=== PATIENT | male | born 1950 | race Caucasian/White ===

== ENCOUNTER → 2017-10-03 10:30 | Outpatient (CLI) | payer MEDICARE, SELFPAY | PROVIDERS: PCP Nurse Practitioner Family; Visit Provider Nurse Practitioner Family | DX: Z45.018 Encounter for adjustment and management of other part of cardiac pacemaker (principal); I48.0 Paroxysmal atrial fibrillation; I49.5 Sick sinus syndrome | CPT/HCPCS: 93280; 99213 ==

== ENCOUNTER → 2018-07-13 12:58 | Outpatient (BNVA) | payer MEDICARE, SELFPAY | PROVIDERS: PCP Nurse Practitioner Family; Visit Provider Internal Medicine Cardiovascular Disease | DX: I49.5 Sick sinus syndrome (principal); I10 Essential (primary) hypertension; I47.2 Ventricular tachycardia; R06.09 Other forms of dyspnea; Z45.010 Encounter for checking and testing of cardiac pacemaker pulse generator [battery] | CPT/HCPCS: 93280; 99205; 99215 ==

== ENCOUNTER 2018-07-23 00:15 | Outpatient (CLI) | payer MEDICARE, SELFPAY ==
--- NOTE | 2018-07-23 06:14 | MERGEMPI_ITS ---
*[facility]* *[facility]* [address] [place] [address] Myocardial Perfusion Imaging - SPECT Fran protocol Date of study: 07/23/2018 *PATIENT PRESENTATION* Height: 182.9cm (72in) Blood Pressure: Weight: 86.4kg (190lb) BSA: 2.1m^2 Referring physician: Smith Petit MD Ordering physician: Stone Renteria Impressions: - Normal perfusion by Tc99m Sestamibi Imaging. - Abnormal contraction consistent with cardiomyopathy. - Ventricular ectopy with exercise and in recovery. Summary: 1. Myocardial perfusion imaging: No myocardial perfusion defects noted. 2. The calculated left ventricular ejection fraction after stress: 43%. Diffuse left ventricular regional motion abnormalities. 3. Stress: The target heart rate was achieved. Indication: I47.2. History: REASON FOR VISIT: PT REPORTS HE IS HERE BECAUSE OF HIS PACEMAKER INTEROGATION RESULTS. HE HAS BORDERLINE HYPERTENSION, A HISTORY OF SINUS NODE DYSFUNCITON, S/P DUAL-CHAMBER PACEMAKER IMPLANT IN 2016. RECENTLY HE WAS FOUND TO HAVE TACHYARRYTHMIA ON A REMOTE DEVICE CHECK. PACEMAKER INTEROGATION ON 07/13/18 SHOWED NORMAL DEVICE FUNCTION WITH EPISODES OF NONSUSTAINED VENTRICULAR TACHYCARDIA. Risk factors: Family history of coronary artery disease. Hypertension. ALLERGIES: NO KNOWN ALLERGIES. MEDICATIONS: ASPIRIN 81 MG DAILY. Imaging Technique: Protocol: Fran protocol. Acquisition: Gated SPECT; 1 day - rest/stress. The patient was imaged in the supine position. Attenuation correction used. Isotope administration: - Rest. Tc[99m]-sestamibi. Dose: 10.3mCi. Injection time: 08:45 AM. Injection to stress time: 00:45. - Stress. Tc[99m]-sestamibi. Dose: 31.2mCi. Injection time: 11:15 AM. 1-2 min before end of exercise Baseline EC% ATRIAL PACED RHYTHM. RBBB. LPFB. HR 68 BPM. Stress protocol: + +---+ + !Stage !HR !BP (mmHg) ! + +---+ + !Baseline supine !68 !136/80 (99) ! + +---+ + !Baseline standing !64 !140/70 (93) ! + +---+ + !Stage I; 1.7mph, 10degrees; 3 min !84 !142/70 (94) ! + +---+ + !Stage II; 2.5mph, 12degrees; 3 min !97 !156/78 (104)! + +---+ + !Stage III; 3.4mph, 14degrees; 3 min!125!160/80 (107)! + +---+ + !Peak stress !152! ! + +---+ + !Recovery; 1 min !117!190/60 (103)! + +---+ + !Recovery; 3 min !96 !166/78 (107)! + +---+ + !Recovery; 6 min !79 !144/78 (100)! + +---+ + * Stress results: Maximal heart rate during stress was 152bpm (99% of maximal predicted heart rate). The maximal predicted heart rate was 153bpm. The target heart rate was achieved. The rate-pressure product for the peak heart rate and blood pressure was 02970bv Hg/min. Stress ECG: TREADMILL PORTION OF STRESS TEST ENDED IN 11 MINUTES DUE TO FATIGUE NORMAL HEART RATE AND BLOOD PRESSURE RESPONSE TO EXERCISE. MAX HR = 152 % OF TARGET = 99 OCCASIONAL PVCs DURING EXERCISE. FREQUENT PVCs MULTIFOCAL, PAIRS AND 3 BEAT RUNS DURING RECOVERY. NON SUSTAINED VENTRICULAR BIGEMINY DURING RECOVERY. NO ANGINA. UPWARD SLOPING ST SEGMENT DEPRESSIONS SEEN IN LEADS V3, V4 AND V5 AFTER [address] SEGMENTS RETURNED TO BASELINE IN BY 5 MINUTES RECOVERY PERIOD. ABOVE AVERAGE FUNCTIONAL CAPACITY FOR EXERCISE. Myocardial perfusion: Imaging information: gated. No myocardial perfusion defects noted. Ventricular Function (Wall Motion): The calculated left ventricular ejection fraction after stress: 43%. Diffuse left ventricular regional motion abnormalities. Study data: Smith Petit MD supervised and was readily available during the procedure. This study was interpreted by [facility]. Study status: Routine. Consent: The risks, benefits, and alternatives to the procedure were explained to the patient and informed consent was obtained. Procedure: Initial setup. A baseline ECG was recorded. Surface ECG leads and manual cuff blood pressure measurements were monitored. Heart sounds: Normal. Lung sounds: Normal. Treadmill exercise testing was performed using the Fran protocol. Study completion: All catheters inserted during the procedure were removed. The patient tolerated the procedure well and was discharged from the lab. Discharge: The patient left the laboratory in stable condition. Birthdate: Patient birthdate: 1950. Sex: Gender: male. Study date: Study date: 07/23/2018. Study time: 00:01 AM. Electronically signed by Smith Petit MD 07/23/2018 18:09
== END 2018-07-23 00:35 ==
PROVIDERS: PCP Nurse Practitioner Family; Visit Provider Internal Medicine Cardiovascular Disease
DX: I47.2 Ventricular tachycardia (principal); Z95.0 Presence of cardiac pacemaker; I10 Essential (primary) hypertension
CPT/HCPCS: 78452; 93016; 93018; 93017

== ENCOUNTER 2018-08-03 01:13 | Outpatient (CLI) | payer MEDICARE, SELFPAY ==
--- NOTE | 2018-08-03 14:01 | MERGE_ITS ---
*[facility]* *[facility]* [address] [place] [address] Date of study: 08/03/2018 Transthoracic Echocardiography M-mode, complete 2D, complete spectral Doppler, and color Doppler *STUDY CONCLUSIONS* Summary: 1. Left ventricle: The cavity size was normal. Systolic function was at the lower limits of normal. The estimated ejection fraction was 50-55%. 2. Mitral valve: Mild prolapse, involving the anterior leaflet and the posterior leaflet. There was moderate to severe regurgitation. 3. Left atrium: The atrium was moderately dilated. 4. Right ventricle: The cavity size was normal. Wall thickness was normal. Pacer wire or catheter noted in right ventricle. Systolic function was normal. 5. Atrial septum: No defect or patent foramen ovale was identified. 6. Pulmonic valve: Peak gradient (S): 2mm Hg. *PATIENT PRESENTATION* Height: 180.3cm ((71in) ) S/D Pressure: 137 / 83 Weight: 85.3kg ((187.6lb) ) BSA: 2.08m^2 Test start time: 02:00 PM. Test stop time: 03:00 PM. ORDERING Stone Renteria REFERRING Stone Renteria PERFORMING Unknown PERFORMING [facility] CONSULTING Inna Pittman PRODUCT SAFETY TEST ENGINEER Afia Antunez *PROCEDURE DATA* Procedure information: This study was interpreted by [facility]. Pertinent images and digital data are archived for permanent storage and are available for subsequent review. Comparison was made to the study of 03/19/2015. Study status: Routine. Transthoracic echocardiography. M-mode, complete 2D, complete spectral Doppler, and color Doppler. A Transthoracic Echocardiogram was performed. Scanning was performed from the parasternal, apical, subcostal, and suprasternal notch acoustic windows. Images were obtained using an [employer] sc [id number] cardiac ultrasound machine. Image quality was good. Study completion: The patient tolerated the procedure well. History: PMH: Non sustained [place]. *CARDIAC ANATOMY* Left ventricle: The cavity size was normal. Systolic function was at the lower limits of normal. The estimated ejection fraction was 50-55%. The tissue Doppler parameters were abnormal. Diastolic parameters were normal for age. There was no evidence of elevated ventricular filling pressure by Doppler parameters. Aortic valve: Trileaflet. Doppler: There was no stenosis. There was no regurgitation. VTI ratio of LVOT to aortic valve: 0.75. Peak velocity ratio of LVOT to aortic valve: 0.71. Mean velocity ratio of LVOT to aortic valve: 0.59. Mean gradient (S): 2.8mm Hg. Peak gradient (S): 4.9mm Hg. Aorta: Aortic root: The aortic root was normal in size. Ascending aorta: The ascending aorta was normal in size. Mitral valve: Mild prolapse, involving the anterior leaflet and the posterior leaflet. Mildly myxomatous leaflets. Doppler: There was no evidence for stenosis. There was moderate to severe regurgitation. Valve area by pressure half-time: 3.7cm^2. Indexed valve area by pressure half-time: 1.8cm^2/m^2. Left atrium: The atrium was moderately dilated. Atrial septum: No defect or patent foramen ovale was identified. Right ventricle: The cavity size was normal. Wall thickness was normal. Pacer wire or catheter noted in right ventricle. Systolic function was normal. Pulmonic valve: Doppler: There was no evidence for stenosis. There was mild regurgitation. Peak gradient (S): 2mm Hg. Tricuspid valve: Doppler: There was mild regurgitation. Pulmonary artery: Poorly visualized. Pulmonary systolic pressure was in the range of 20mm Hg to 30mm Hg. Right atrium: The atrium was normal in size. Pacer wire or catheter noted in right atrium. Pericardium: There was no pericardial effusion. Systemic veins: Inferior vena cava: The vessel was normal in size. The respirophasic diameter changes were in the normal range (greater than or equal to 50%), consistent with normal central venous pressure. Measurements Left ventricle Value Reference LV ID, ED, PLAX 5.1 cm 3.5 - 6.0 LV ID, ES, PLAX 3.8 cm 2.1 - 4.0 LV PW thickness, ED, PLAX 1.0 cm LV end-diastolic volume, 1-p A2C 107 ml LV ejection fraction, 1-p A2C 55 % LV end-diastolic volume, 1-p A4C 133 ml LV ejection fraction, 1-p A4C 52 % LV e', lateral 0.079 m/sec LV E/e', lateral 7 LV e', medial 0.055 m/sec LV E/e', medial 10 LV e', average 0.067 m/sec LV E/e', average 8 Ventricular septum Value Reference IVS thickness, ED, PLAX 0.9 cm LVOT Value Reference LVOT peak velocity, S 0.79 m/sec LVOT mean velocity, S 0.47 m/sec LVOT VTI, S 18.7 cm LVOT peak gradient, S 2.5 mm Hg LVOT mean gradient, S 1.1 mm Hg Aortic valve Value Reference Aortic valve peak velocity, S 1.1 m/sec Aortic valve mean velocity, S 0.78 m/sec Aortic valve VTI, S 25.0 cm Aortic mean gradient, S 2.8 mm Hg Aortic peak gradient, S 4.9 mm Hg VTI ratio, LVOT/AV 0.75 Velocity ratio, peak, LVOT/AV 0.71 Velocity ratio, mean, LVOT/AV 0.59 Aorta Value Reference Aortic root ID, ED 3.5 cm Ascending aorta ID, A-P, S 3.2 cm Left atrium Value Reference LA ID, A-P, ES 3.9 cm LA ID/bsa, A-P 1.9 cm/m^2 <=2.2 LA area, ES, A4C (H) 27.3 cm^2 8.8 - 23.4 LA area, ES, A2C 19 cm^2 LA volume/bsa, S 49 ml/m^2 LA volume, ES, 2-p 93 ml LA volume/bsa, ES, 2-p 45 ml/m^2 LA/aortic root ratio 1.14 Mitral valve Value Reference Mitral E-wave peak velocity 0.57 m/sec Mitral A-wave peak velocity 0.54 m/sec Mitral deceleration time 203 ms 150 - 230 Mitral pressure half-time 59 ms Mitral E/A ratio, peak 1.05 Mitral valve area, PHT, DP 3.7 cm^2 Tricuspid valve Value Reference Tricuspid regurg peak velocity 2.4 m/sec Tricuspid peak RV-RA gradient 22.4 mm Hg Right atrium Value Reference RA area, ES, A4C 18.6 cm^2 8.3 - 19.5 Pulmonic valve Value Reference Pulmonic peak gradient, S 2 mm Hg Legend: (L) and (H) william values outside specified reference range. I have personally reviewed the images and have reviewed and edited the reported findings. Electronically signed by Smith Petit MD 08/03/2018 19:18
== END 2018-08-03 01:33 ==
PROVIDERS: PCP Nurse Practitioner Family; Visit Provider Internal Medicine Cardiovascular Disease
DX: I47.2 Ventricular tachycardia (principal); I34.1 Nonrheumatic mitral (valve) prolapse; Z95.0 Presence of cardiac pacemaker; I48.91 Unspecified atrial fibrillation; I10 Essential (primary) hypertension
CPT/HCPCS: 93306

== ENCOUNTER → 2018-09-13 13:01 | Outpatient (BNVA) | payer MEDICARE, SELFPAY | PROVIDERS: PCP Nurse Practitioner Family; Visit Provider Internal Medicine Cardiovascular Disease | DX: I49.5 Sick sinus syndrome (principal); Z45.018 Encounter for adjustment and management of other part of cardiac pacemaker; I10 Essential (primary) hypertension; I47.2 Ventricular tachycardia; I34.1 Nonrheumatic mitral (valve) prolapse; I34.0 Nonrheumatic mitral (valve) insufficiency | CPT/HCPCS: 93280; 99215 ==

== ENCOUNTER 2021-03-01 02:12 | Outpatient (CLI) | payer MEDICARE, SELFPAY ==
[2021-03-01 12:32] LABS: Anion Gap 7.4 mmol/L (3-11); BUN 19 mg/dL (7-18); CO2 29.6 mmol/L (21.0-32.0); CREATININE 0.9 mg/dL (0.70-1.30); Calculated LDL 139 mg/dL (<100); Chloride 104 mmol/L (98-107); Cholesterol 211 mg/dL (<200); Glucose 90 mg/dL (74-106); HDL Cholesterol 46 mg/dL (40-60); Potassium 4.5 mmol/L (3.5-5.1); Sodium 141 mmol/L (136-145); Triglyceride 130 mg/dL (<150)
== END 2021-03-01 02:13 | disposition home or self-care (01) ==
PROVIDERS: PCP Nurse Practitioner Family; Visit Provider Internal Medicine
DX: R03.0 Elevated blood-pressure reading, without diagnosis of hypertension (principal); Z00.00 Encounter for general adult medical examination without abnormal findings; Z13.1 Encounter for screening for diabetes mellitus; Z13.6 Encounter for screening for cardiovascular disorders
CPT/HCPCS: 36415; 80048; 80061

== ENCOUNTER 2022-05-17 01:15 | Outpatient (CLI) | payer MEDICARE, SELFPAY ==
--- NOTE | 2022-05-17 07:45 | DI.RAD_ITS ---
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 COMPARISON: CR CHEST 2 VIEWS PA,LAT from 03/26/2015 FINDINGS: HEART: Normal size. Pacemaker again noted. Aorta: Not dilated. PULMONARY VASCULATURE: Normal. LUNGS: Clear. No visible emphysematous changes. No visible interstitial changes or scarring. PLEURAL SPACE: No pleural effusion or pneumothorax. BONE:Unremarkable for age. IMPRESSION: No acute abnormality. DATA REPOSITORY: RADIATION DOSE DELIVERED:
== END 2022-05-17 01:35 ==
PROVIDERS: PCP Student in an Organized Health Care Education/Training Program; Visit Provider Student in an Organized Health Care Education/Training Program
DX: Z57.2 Occupational exposure to dust (principal); Z95.0 Presence of cardiac pacemaker; Z13.83 Encounter for screening for respiratory disorder NEC
CPT/HCPCS: 71046

== ENCOUNTER 2024-06-12 01:42 | Outpatient (CLI) | payer MEDICARE, SELFPAY | END 2024-06-12 01:43 | disposition home or self-care (01) | LOC: LBO 01:42 | PROVIDERS: PCP Family Medicine; Referring Provider Family Medicine; Visit Provider Family Medicine | DX: M10.9 Gout, unspecified (principal) | CPT/HCPCS: 36415; 84550 ==